=== PATIENT | female | born 1990 | race Caucasian/White ===

== ENCOUNTER 2018-05-08 12:14 | Emergency (ER) | payer OTHER ==
[~2018-05-08] VITALS: Ht 162.6 cm; Wt 80.7 kg
[~2018-05-08 12:14] MED LIST: LOESTRIN 24 FE1 EACH PO; NORCO 5-325 TA1 EACH PO
[2018-05-08 12:29] LABS: URINE BILIRUBIN NEGATIVE (Negative); URINE BLOOD 2+ (Negative); URINE CLARITY CLEAR; URINE COLOR YELLOW; URINE GLUCOSE-RANDOM* NEGATIVE (Negative); URINE KETONES NEGATIVE (Negative); URINE LEUKOCYTES NEGATIVE (Negative); URINE NITRITE NEGATIVE (Negative); URINE PROTEIN (DIPSTICK) NEGATIVE (Negative); URINE UROBILINOGEN 0.2 E.U./dl (0.2-1.0)
[2018-05-08] MEDS ORDERED: CONTRAVE ER 8-1 EACH PO (12:29)
[2018-05-08] MEDS ORDERED: VITAMIN B-12500 MCG PO (12:29)
[2018-05-08 12:38] LABS: SQUAMOUS 4-10 Moderate /LPF (0-3)
[2018-05-08 12:39] LABS: CASTS None Seen /LPF (None Seen); CRYSTALS None Seen /LPF (None Seen); URINE RBC None Seen /HPF (0-2); URINE WBC 0-5 Rare /HPF (0-5)
[2018-05-08 12:51] LABS: ABSOLUTE NEUTROPHILS 4.8 thou/uL (1.4-8.2); BASOPHILS 0.5 % (0.0-2.0); EOSINOPHILS 0.5 % (0.0-3.0); HEMATOCRIT 36.7 % (37.0-47.0); HEMOGLOBIN 12.6 gm/dL (12.0-15.0); MCH 30.6 pg (26.0-34.0); MCHC 34.4 g/dL (28.0-37.0); MCV 88.8 fL (80.0-100.0); MONOCYTES 5.3 % (1.0-8.0); PLATELET COUNT 271 thou/uL (150-400); POLYS 61.7 % (36.0-66.0); RBC 4.13 mil/uL (4.20-5.00); RDW 13.3 % (10.5-14.5); WBC 7.7 thou/uL (4.0-11.0)
[2018-05-08 12:55] LABS: ANION GAP 11 mmol/L (7-16); BUN 6 mg/dL (7-18); CALCIUM 9.1 mg/dL (8.5-10.1); CHLORIDE 104 mmol/L (98-107); CO2 24 mmol/L (21-32); CREATININE 0.7 mg/dL (0.6-1.0); GLUCOSE 92 mg/dL (74-106); POTASSIUM 3.7 mmol/L (3.5-5.1); SODIUM 139 mmol/L (136-145)
[2018-05-08 13:01] LABS: ALBUMIN 3.7 g/dL (3.4-5.0); DIRECT BILIRUBIN < 0.1 mg/dL (<0.1-0.3); LIPASE 212 U/L (73-393); SGOT 15 U/L (15-37); SGPT 20 U/L (30-65); TOTAL BILIRUBIN 0.3 mg/dL (<0.1-1.0); TOTAL PROTEIN 7.1 g/dL (6.4-8.2)
[2018-05-08] MEDS ORDERED: NAPROSYN500 MG PO (14:39)
[2018-05-08] MEDS ORDERED: TRAMADOL 50 MG50 MG PO (14:39)
[2018-05-08] MEDS ORDERED: ZOFRAN ODT4 MG DISSOLVE (14:50)
[2018-05-08 15:14] VITALS: BP 127/79
== END 2018-05-08 15:15 | disposition home or self-care (01) ==
LOC: ER 12:14
PROVIDERS: Emergency Medicine
DX: K59.00 Constipation, unspecified (principal); R35.0 Frequency of micturition; Z86.19 Personal history of other infectious and parasitic diseases; Z90.49 Acquired absence of other specified parts of digestive tract; Z90.89 Acquired absence of other organs; Z91.018 Allergy to other foods; Z88.8 Allergy status to other drugs, medicaments and biological substances; Z88.2 Allergy status to sulfonamides; Z88.1 Allergy status to other antibiotic agents

== ENCOUNTER → 2018-05-10 | Outpatient (CLI) | payer OTHER ==
[~2018-05-10] MED LIST changes: +CONTRAVE ER 8-1 EACH PO; +NAPROSYN500 MG PO; +TRAMADOL 50 MG50 MG PO; +VITAMIN B-12500 MCG PO; +ZOFRAN ODT4 MG DISSOLVE
== END ==
LOC: NUC 07:53
DX: R10.11 Right upper quadrant pain (principal); R11.0 Nausea

== ENCOUNTER → 2018-05-16 | Outpatient (CLI) | payer OTHER | LOC: NUC 09:44 | DX: R10.84 Generalized abdominal pain (principal) ==